=== PATIENT | male | born 1985 | race Caucasian/White ===

== ENCOUNTER 2017-06-03 08:52 | Emergency (ER) | payer MEDICAID ==
[~2017-06-03] VITALS: Ht 177.8 cm; Wt 102.0 kg
[2017-06-03 08:56] VITALS: BP 131/75; PULSE 84; RESP 16; TEMP 98.7; O2SAT 95
[2017-06-03] MEDS ORDERED: LISI-519 PO (08:56)
[2017-06-03] MEDS ORDERED: FISHOIL (08:56)
[2017-06-03] MEDS ORDERED: METF850T PO (08:56)
[2017-06-03] MEDS ORDERED: GLYB2.5T3 PO (08:56)
--- NOTE | 2017-06-03 09:07 | PD ---
HPI . Chest pain Chief Complaint: Chest Pain Time Seen by Provider: 08:55 Travel History International Travel<30 days: No Contact w/Intl Traveler<30days: No Traveled to known affect area: No History of Present Illness HPI This patient presents with a chief complaint of chest pain. Other symptoms include shortness of breath, dizziness and tingling in his hands. He came to us via [facility]. He states that the fashion journalist told him he was probably having a panic attack. Once he was informed of this and had a chance to calm down, his symptoms resolved. He does report a persistent stressor which is the probable etiology for the panic attack. PFSH Past Medical History Hx Anticoagulant Therapy: No Cardiovascular Problems: Yes (HTN) Diabetes: Yes Patient Takes Glucophage: Yes Diminished Hearing: No Hypertension: Yes Tetanus Vaccination: Unknown Social History Alcohol Use: No Tobacco Use: Yes (3-6 PPD PER PT.) Substance Use: No Allergies-Medications (Allergen,Severity, Reaction): Coded Allergies: No Known Allergies (Unverified , 06/03/17) Reported Meds & Prescriptions Reported Meds & Active Scripts Active Reported [Fish Oil] Unknown Dose Lisinopril 5 Mg Tab Unknown Dose PO DAILY Glyburide 2.5 Mg Tab Unknown Dose PO DAILY Take with meals at the same time each day Metformin (Metformin HCl) 850 Mg Tab 850 Mg PO BIDPC Review of Systems Except as stated in HPI: all other systems reviewed are Neg HENT: Positive: Lightheadedness Cardiovascular: Positive: Chest Pain or Discomfort Respiratory: Positive: Shortness of Breath Neurologic: Positive: Paresthesia Physical Exam Narrative GENERAL: Awake and alert and in no acute distress. SKIN: Warm and dry. Normal color and turgor. HEAD: Normocephalic/atraumatic. EYES: Pupils are equal. Extraocular movements are intact. Distally NECK: Normal range of motion. CARDIOVASCULAR: Regular rate and rhythm. Heart sounds are normal. RESPIRATORY: Nonlabored respirations. Lungs are clear with full air movement throughout. MUSCULOSKELETAL: Atraumatic. NEUROLOGICAL: Nonfocal. PSYCHIATRIC: Appropriate mood and affect. Data Data Last Documented VS Vital Signs Date Time Temp Pulse Resp B/P (MAP) Pulse Ox O2 Delivery O2 Flow Rate FiO2 06/03/17 09:00 16 95 Room Air 06/03/17 08:56 98.7 84 131/75 (93) Orders Orders Ed Discharge Order (06/03/17 08:59) [facility] Medical Decision Making Medical Screen Exam Complete: Yes Emergency Medical Condition: Yes Interpretation(s) EKG shows a normal sinus rhythm with no acute ischemic change Differential Diagnosis Differential diagnosis of chest pain includes but is not limited to musculoskeletal pain, pulmonary embolism, acute coronary syndrome, pneumonia, pleurisy Narrative Course This patient presents to us via [facility] with the chief complaint of chest pain, shortness of breath, dizziness and paresthesias. Symptoms resolved after being evaluated by EMS. Patient states that he knows why he had a panic attack. The history, exam, diagnostic testing, and current condition do not suggest any significant pathology to warrant further testing, continued ED treatment, admission, or surgical evaluation at this point. No EMC was found. The patient 's condition is stable and appropriate for discharge. Diagnosis Primary Impression: Panic attack Referrals: Primary Care Physician as needed Patient Instructions: General Instructions, Panic Attack (ED) Departure Forms: Tests/Procedures Disposition: 01 DISCHARGE HOME Condition: Stable Tabatha Rider MD Jun 03, 2017 09:07
--- NOTE | 2017-06-03 13:56 | EKG ---
Date Performed: 06/03/2017 Time Performed: 08:48:05 PTAGE: 32 years EKG: Sinus rhythm POSSIBLE RIGHT VENTRICULAR CONDUCTION DELAY BORDERLINE ECG NO PREVIOUS TRACING 06/03/2017 0848 DOCTOR: Rufina Jonas Interpretating Date/Time 06/03/2017 13:55:02
== END 2017-06-03 09:20 | disposition home or self-care (01) ==
LOC: PHED 08:52
DX: F41.0 Panic disorder [episodic paroxysmal anxiety] (principal); R94.31 Abnormal electrocardiogram [ECG] [EKG]; I10 Essential (primary) hypertension; E11.9 Type 2 diabetes mellitus without complications; F17.200 Nicotine dependence, unspecified, uncomplicated
CPT/HCPCS: 93005; 99283